=== PATIENT | female | born 2000 | race Caucasian/White ===

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

== ENCOUNTER 2023-01-20 20:56 | Emergency (ER) | payer OTHER, SELFPAY ==
[2023-01-20 20:59] VITALS: BP 117/87; PULSE 100; RESP 18; TEMP 36.6; O2SAT 98
[2023-01-20 21:29] LABS: Bilirubin Negative (Negative); Blood Moderate (Negative); Clarity Clear (Clear); Glucose Negative (Negative); Ketones Negative (Negative); Leukocyte Esterase Negative (Negative); Nitrite Negative (Negative); Specific Gravity 1.025 (1.005-1.025); Urobilinogen 0.2 mg/dL (Up to 0.2)
[2023-01-20 21:30] LABS: Bacteria Negative HPF (Negative); C & S Indicated? No; Casts Negative LPF (Negative); Crystals Negative HPF (Negative); Epithelial Cells Few HPF (Negative); Mucus Negative (Negative); Other Cells Negative (Negative); RBC 20-50 HPF (0-2); WBC 0-2 HPF (0-5)
--- NOTE | 2023-01-20 21:52 | W.ED.GENAD ---
Discharge Plan Disposition Patient Disposition: Home Discharge Details Chief Complaint: LEARNING SUPPORT TEACHER Clinical Impression: Pelvic cramping Primary Care Provider: Damon Manzanares ED Provider: Ethan Britt Home Meds and New Rx's Prescriptions: No Action Mirena 1 EACH intrauterine device 1 ea Intrauterine ONCE Qty: 1 Discharge Instructions Instructions: Pelvic Pain in Women (ED) Additional Instructions: Please follow-up tomorrow for pelvic ultrasound. Please follow-up with women's health appointment. Return to the emergency department for any worsening symptoms. Medical Decision Making 22-year-old female history of IUD presents 1 day of pelvic cramping and scant bloody discharge. Hemodynamically stable afebrile nontoxic. Nonperitoneal. Normal external genitalia, scant brown discharge near cervix on pelvic examination, IUD string visualized, swab for gonorrhea chlamydia as well as vaginal pathogen's high clinical suspicion for cramping and pain related to IUD lower suspicion for pelvic inflammatory disease, must also consider ruptured ovarian cyst versus STI versus Gardnerella versus trichomoniasis lower suspicion for candidiasis. Will set up appointment for next day pelvic ultrasound to assess location of IUD and assess for any uterine or adnexal pathology. Patient will follow-up closely with women's health. Home care instructions and return precautions given. HPI General Date/Time Provider Initiated Documentation: 01/20/23 21:12. HPI Narrative: 22-year-old female history of IUD, presents with pelvic cramping over the last 24 hours, slight bloody discharge, denies new sexual partners over the last 2 to 3 years, denies history of STI. Denies nausea vomiting fevers or chills. Has an appointment with women's health on Tuesday. Related Data Home Medications Medication Instructions Recorded Confirmed levonorgestrel 21 mcg/24 hours (8 1 ea intrauterine ONCE #1 implant 06/16/18 01/20/23 yrs) 52 mg intrauterine device (Mirena) Allergies Allergy/AdvReac Type Severity Reaction Status Date / Time banana AdvReac Contraindic Unverified 01/20/23 21:09 ated General Stated Complaint: LEARNING SUPPORT TEACHER CHIKA: 3 Review of Systems Narrative: Review of Systems Constitutional: negative Eyes: negative ENT: negative Cardiovascular: negative Respiratory: negative Gastrointestinal: negative : Pelvic cramping, vaginal discharge Musculoskeletal: negative Skin: negative Neurologic: negative Psych: negative PFSH All Active Problems (Updated 01/20/23 @ 21:57 by Ethan Britt MD) Pelvic cramping (Acute) Medical History (Updated 01/20/23 @ 21:57 by Ethan Britt MD) Achilles tendonitis Adjustment disorder of adolescence Allergic rhinitis Bunion of great toe of right foot Headache Knee joint pain Migraine Family History Mother Asthma Father Diverticulitis Hyperlipidemia Social History Smoking/Tobacco Use Status: Never Smoking risk assessment performed?: Yes Alcohol Intake: never Drug use: Never Do you feel safe at home: Yes Do you feel safe in your relationship?: Yes Exam Narrative Exam Narrative: Physical Examination General: alert, awake, cooperative, resting comfortably, no acute distress HEENT: normocephalic, atraumatic; PERRL, EOM intact, conjunctiva normal; no nasal discharge; moist mucous membranes, oral and pharyngeal mucosa normal, tolerating secretions Neck: supple, trachea midline; full ROM Chest: normal to inspection Respiratory: normal respiratory effort, speaking in full sentences, clear to auscultation, no wheezing, rales or rhonchi Cardiac: regular rate, regular rhythm, S1S2 intact, no murmurs rubs or gallops GI: abdomen soft, non-tender, non-distended; no palpable mass or hepatosplenomegaly : Normal external genitalia, scant brown discharge in vault near cervix consider old blood, no active bleeding; IUD string visualized Skin: no lesions, rashes or trauma appreciated Neuro: AAOx3, normal speech, moving all extremities Psych: Appropriate mood and affect Course Vital Signs Vital signs: Vital Signs Temperature 36.6 C 01/20/23 20:59 Pulse 100 H 01/20/23 20:59 Respiratory Rate 18 01/20/23 20:59 Blood Pressure 117/87 01/20/23 20:59 Pulse Oximetry 98 01/20/23 20:59 Temperature 36.6 C 01/20/23 20:59 Temperature Source Oral 01/20/23 20:59 Pulse 100 H 01/20/23 20:59 Respiratory Rate 18 01/20/23 20:59 Respiratory Effort Normal 01/20/23 21:05 Blood Pressure 117/87 03/16/23 20:59 Blood Pressure Position Sitting 01/20/23 20:59 Pulse Oximetry 98 01/20/23 20:59 Oxygen Delivery Method Room Air 01/20/23 20:59 Oxygen Flow Rate 0 01/20/23 20:59 Pain Level 3 01/20/23 21:07 Lab/Test Results Lab/Test Results: Laboratory Tests Range/Units 01/20/23 21:18 Urine Color (Yellow) Yellow Urine Clarity (Clear) Clear Urine pH (5-8) 7.0 Ur Specific [place] (1.005-1.025) 1.025 Urine Protein (Negative) mg/dL Negative Urine Ketones (Negative) mg/dL Negative Urine Blood (Negative) Moderate H Urine Nitrite (Negative) Negative Urine Bilirubin (Negative) Negative Urine Urobilinogen (Up to 0.2) mg/dL 0.2 Ur Leukocyte Esterase (Negative) Negative Urine RBC (0-2) HPF 20-50 H Urine WBC (0-5) HPF 0-2 Ur Epithelial Cells (Negative) HPF Few Urine Crystals (Negative) HPF Negative Urine Bacteria (Negative) HPF Negative Urine Casts (Negative) LPF Negative Urine Mucus (Negative) Negative Urine Other (Negative) Negative Ur Culture Indicated? No Urine Glucose (Negative) mg/dL Negative POC- Test(urine) Negative
--- NOTE | 2023-01-20 22:05 | NUR.NOTE ---
Pelvic Ultrasound req faxed to DI for 01/21/23, pelvic instruction sheet given to patient.Nursing Note:
[2023-01-20 22:06] VITALS: PULSE 98; RESP 18; O2SAT 97
[2023-01-22 14:06] LABS: Chlamydia Result Negative (Negative); GC Result Negative (Negative)
== END 2023-01-20 22:08 | disposition home or self-care (01) ==
PROVIDERS: Emergency Provider Emergency Medicine; PCP Physician Assistant
DX: N89.8 Other specified noninflammatory disorders of vagina (principal); N94.89 Other specified conditions associated with female genital organs and menstrual cycle
CPT/HCPCS: 81025; 87491; 87591; 99282; 99284; 81003; 81015; 87480; 87510; 87660; 99283

== ENCOUNTER 2023-01-24 15:38 | Outpatient (REF) | payer OTHER, SELFPAY ==
--- NOTE | 2023-01-24 14:00 | PAPFT_PTH ---
PATIENT: Selam Mcpherson LOC: N U#:[id number] AGE/SX: 22/F ROOM: RE01/24/[address]: Mariah Porter NP : 2000 BED: DIS: 01/24/2023 SPEC #: [id number] RECD: 01/24/23 17:25 STATUS: GT REQ #: [id number] CHRISTAL: 01/24/23 14:[address]: Mariah Porter NP DEPT: [facility] Cytology RECD BY: Zehra Schwarz ENTERED: 01/24/23 17:25 SP TYPE: PAPFT OTHR DR: Damon Manzanares Tissues: 1 - CX/ENDOCX FOR PAP SMEARS Procedures: PAP THIN PREP/[facility] Screening Comments: [id number]
== END 2023-01-24 15:39 | disposition home or self-care (01) ==
LOC: LBN 15:38
PROVIDERS: PCP Physician Assistant; Visit Provider Nurse Practitioner Women's Health
DX: Z12.4 Encounter for screening for malignant neoplasm of cervix (principal)
CPT/HCPCS: 88142

== ENCOUNTER 2023-06-22 08:15 | Outpatient (REF) | payer OTHER, MEDICAID, SELFPAY ==
[2023-06-24 12:15] LABS: Campylobacter PCR Negative (Negative); Salmonella PCR Negative (Negative); Shiga Toxin PCR Negative (Negative); Shigella/Enteroinvasive Ecoli Negative (Negative)
== END 2023-06-22 08:16 | disposition home or self-care (01) ==
LOC: NCHCN 08:15
PROVIDERS: PCP Physician Assistant; Visit Provider Physician Assistant
DX: R10.30 Lower abdominal pain, unspecified (principal); R19.7 Diarrhea, unspecified; K59.00 Constipation, unspecified
CPT/HCPCS: 87329; 87505; 83630; 87177

== ENCOUNTER 2023-08-19 13:30 | Outpatient (REF) | payer MEDICAID, SELFPAY ==
[2023-08-19 19:09] LABS: TSH (W/Ref FT4) 1.43 uIU/mL (0.36-3.74)
== END 2023-08-19 13:31 | disposition home or self-care (01) ==
LOC: NCHCN 13:30
PROVIDERS: PCP Internal Medicine; Visit Provider Physician Assistant
DX: Z83.49 Family history of other endocrine, nutritional and metabolic diseases (principal)
CPT/HCPCS: 84443

== ENCOUNTER 2023-09-19 15:36 | Outpatient (REF) | payer MEDICAID, SELFPAY | END 2023-09-19 15:37 | disposition home or self-care (01) | LOC: NCHCN 15:36 | PROVIDERS: PCP Internal Medicine; Visit Provider Nurse Practitioner Family | DX: J02.9 Acute pharyngitis, unspecified (principal) | CPT/HCPCS: 87070 ==

== ENCOUNTER → 2023-11-10 01:49 | Outpatient (CLI) | payer OTHER, SELFPAY ==
--- NOTE | 2023-11-10 13:27 | DI.RAD_ITS ---
Exam(s) XR FOOT RT COMPLETE EXAM: XR FOOT RT COMPLETE CLINICAL HISTORY: Right foot pain,m79.671. TECHNIQUE: 2D digital imaging was performed of the right foot. Three images were obtained. AP, obl ique and lateral views were obtained. COMPARISON: No exams were available for comparison FINDINGS: BONES: No acute fracture is present. No bony destructive lesion is seen. There is a hallux valgus def ormity. JOINTS: No dislocation present. The joint spaces are well maintained. SOFT TISSUE: Normal. IMPRESSION: Hallux valgus deformity. DATA REPOSITORY: RADIATION DOSE DELIVERED:
--- NOTE | 2023-11-10 13:27 | DI.RAD_ITS ---
Exam(s) XR FOOT LT COMPLETE EXAM: XR FOOT LT COMPLETE CLINICAL HISTORY: Left foot pain,M79.672. TECHNIQUE: 2D digital imaging was performed of the left foot. Three images were obtained. AP, obli que and lateral views were obtained. COMPARISON: No exams were available for comparison FINDINGS: BONES: No acute fracture is present. No bony destructive lesion is seen. There is a mild hallux valgu s deformity. JOINTS: No dislocation present. The joint spaces are well maintained. SOFT TISSUE: Normal. IMPRESSION: No acute abnormality. Please see the above discussion for complete details. DATA REPOSITORY: RADIATION DOSE DELIVERED:
== END ==
PROVIDERS: PCP Internal Medicine; Visit Provider Podiatrist
DX: M79.671 Pain in right foot (principal); M79.672 Pain in left foot; M20.11 Hallux valgus (acquired), right foot
CPT/HCPCS: 73630

== ENCOUNTER 2024-07-26 21:06 | Outpatient (REF) | payer OTHER, SELFPAY ==
--- OUTSIDE RECORDS SUMMARY | 2024-07-26 21:15 | XMS_ITS | Referral Summary ---
Author Organization [facility] Address [address] [place] [address] Care Team Providers Care Burlap Roll Coverer Name Role Phone Mynor Balderas MD Primary Care Provider [phone] Allergies No known active allergies Medications No known medications Social History Tobacco Use Types Packs/Day Years Used Date Smoking Tobacco: Never Interpersonal Safety Answer Date Record ed Physically Hurt Never 06/09/2020 Verbally Threaten Not on file 06/09/2020 Sex and Gender Information Value Date Recorded Sex Assigned at Not on file Gender Identity Not on file Sexual Orientation Not on file Last Filed Vital Signs Vital Sign Reading Time Taken Comments Blood Pressure 115/62 03/14/2016 0748 EDT Pulse 74 03/14/2016 0748 EDT Temperature 36.5 ??C (97.7 ??F) 03/14/2016 0748 EDT Respiratory Rate 14 03/14/2016 0748 EDT Oxygen Saturation 100% 03/14/2016 0748 EDT Inhaled Oxygen Concentration - - Weight 61.2 kg (135 lb) 03/14/2016 0748 EDT Height - - Body Mass Index - - Plan of Treatment Not on file Care Teams Burlap Roll Coverer Relationship Specialty Start Date End Date Mynor Balderas MD [address] [place] [address] PCP - General 03/14/16
--- OUTSIDE RECORDS SUMMARY | 2024-07-26 21:15 | XMS_ITS | Encounter Summary ---
Author Organization [facility] Address [address] [place] [address] Care Team Providers Care Patient Services Technician Name Role Phone Mynor Balderas MD Primary Care Provider [phone] Reason for Visit * Reason Comments Foot Pain right foot pain afte r swimming, I jammed my foot into the bottom of the pool, occurred last night, has used ice/Ibuprofen, unable to bear wt Encounter Details Date Type Department Care Team (Late st Contact Info) Description 03/14/2016 7:42 EDT - 03/14/2016 9:13 EDT Emergency [facility] Emergency Department - [address] [address] Walter Watkins MD Emergency, MD Jena Discharge Disposition: Home or Self Care Social History Tobacco Use Types Packs/Day Years Used Date Smoking Tobacco: Never Sex and Gender Information Value Date Recorded Sex Assigned at Not on file Gender Identity Not on file Sexual Orientation Not on file documented as of this encounter Last Filed Vital Signs Vital Sign Reading Time Taken Comments Blood Pressure 115/62 03/14/2016 0748 EDT Pulse 74 03/14/2016 0748 EDT Temperature 36.5 ??C (97.7 ??F) 03/14/2016 0748 EDT Respiratory Rate 14 03/14/2016 0748 EDT Oxygen Saturation 100% 03/14/2016 0748 EDT Inhaled Oxygen Concentration - - Weight 61.2 kg (135 lb) 03/14/2016 0748 EDT Height - - Body Mass Index - - documented in this encounter Discharge Instructions * Discharge Instructions* Walter Watkins MD - 03/14/2016 8:47 EDT You have a fracture of the base of the 5th metatarsal You should use the boot for walking until cleared to walk without it by the orthopedist Call for orthopedic appointment in your home area tomorrow, to be seen in 7-10 days See any doctor if worsening or concerning symptoms Use tylenol or advil if needed for pain May use ice today off and on No sports until cleared by orthopedist documented in this encounter Discharge Disposition Disposition Code Departure Means Destination Comment s Home or Self Care Walk-out Home dad with pt to transport pt home and assist after discharge as needed. documented in this encounter ED Notes * Milady Melendez RN - 03/14/2016 0910 EDT Work up complete. Provider in to reassess pt and speak to pt and her dad regarding findings and plan of care. Pt for walking boot and crutches-provided with instructions given; then okay for discharge. Instructions prepared by provider reviewed with pt who verbalizes and demonstrates clear understanding of all discharge instructions. Demonstrates safe and proper application and use of walking boot.Demonstrates safe and proper crutch ambulation. * Walter Watkins MD - 03/14/2016 0802 EDT DOS: 03/14/2016 Chief Complaint Patient presents with ??? Foot Pain right foot pain after swimming, I jammed my foot into the bottom of the pool, occurred last night, has used ice/Ibuprofen, unable to bear wt HPI HPI Comments: I, Annel Kong, am scribing for Walter Watkins MD while he is personally performing the service. Annel Kong 03/14/2016 8:06 Selma Mcpherson is a 16 y.o. female with a no significant past medical history who presents to the ED with right foot pain localized in the lateral aspect of her foot. The patient notes that while jumping into a pool last night, she slammed and twisted her right foot at the bottom of the pool. She notes that after injuring her foot, she immediately got out of the pool and limped back to her hotelroom. The patient notes that she took ibuprofen and iced her foot last night to relieve the pain. The patient denies any pain in her knee, toes, ankle, or leg. The history is provided by the patient and the father. Review of Systems Review of Systems Musculoskeletal: Negative for myalgias and arthralgias. Foot pain as a result of injury to the right foot All other systems reviewed and are negative. The patient's past medical, family and social history was reviewed and updated as needed. No Known Allergies Vital Signs Temp: 36.5 ??C (97.7 ??F) Temp src: Temporal Pulse: 74 Resp: 14 SpO2: 100 % BP: 115/62 mmHg O2 Device: None (Room air) Physical Exam Constitutional: She is oriented to person, place, and time. She appears well- developed and well-nourished. No distress. HENT: Head: Normocephalic and atraumatic. Neck: Normal range of motion. Neck supple. Cardiovascular: Intact distal pulses. Pulses: Dorsalis pedis pulses are 2+ on the right side. Normal dorsalis pedal pulse in the right foot. Pulmonary/Chest: Effort normal. No respiratory distress. Musculoskeletal: She exhibits edema (localized swelling over the area) and tenderness (Tenderness over the top part of the foot.). Hyper-extension injury localized in the lateral aspect of the right foot. Tenderness to the top part of her foot - most tenderness over the base of the 5th metatarsal. Some localized swelling and bruising to the area. Rest of the foot, ankle and leg non tender Neurological: She is alert and oriented to person, place, and time. She has normal strength. No sensory deficit. Skin: Skin is warm and dry. She is not diaphoretic. Psychiatric: She has a normal mood and affect. Her behavior is normal. Nursing note and vitals reviewed. RESULTS ED Lab Results Labs Reviewed - No data to display Procedures ED COURSE A medical screening exam was performed. Patient had a right foot X-ray, reviewed and interpreted by me, showing a non- displaced fracture atthe base of the fifth metatarsal. Advised the patient and her father of the fracture and the need for orthopedic follow-up in their area in 7-10 days. Will give 3-D boot to use. Will also give crutches today if needed. The patient was discharged to home. Prior to discharge usual and customary precautions were reviewed with the patient and/or family including follow-up instructions and reasons to return to the Emergency Department if condition worsens, does not improve as expected, or other new concerns arise. ASSESSMENT AND PLAN Final diagnoses: None DISPOSITION: Discharged The patient's pain was managed to an adequate level weighing risk vs. benefit of further medications. Upon departure from the Emergency Department, the patient's pain was 5 on a zero to ten scale. Condition at departure from the Emergency Department: Good PCP: Mynor AYALA Number of Diagnoses or Management Options Diagnosis management comments: 3 This documentation is recorded by Annel Kong acting as Scribe under the direction and presence of Walter Watkins MD. Walter Watkins MD: I personally performed the services recorded by the scribe in my presence. I confirm the scribe's documentation has been reviewed by me to accurately and completely record my work, treatment, procedures, and medical decision making. 03/14/2016 9:10 No flowsheet data found. documented in this encounter Plan of Treatment Not on file documented as of this encounter Procedures Procedure Name Priority Date/Time Associated Diagnosis Comments FOOT 3 OR MORE VIEWS STAT 03/14/2016 8:37 EDT documented in this encounter Results * FOOT 3 OR MORE VIEWS (03/14/2016 8:37 EDT) Anatomical Region Laterality Modality Other 03/14/2016 8:37 EDT 03/14/2016 9:40 EDT Narrative 03/14/2016 9:40 EDT FOOT 3 OR MORE VIEWS ??03/14/2016 8:37 AM SIGNS AND SYMPTOMS/COMMENTS: BONE PAIN, FOOT, injury lateral right foot yesterday COMPARISON: None. FINDINGS: AP, oblique, and lateral nonweightbearing views of the right foot show a nondisplaced fracture involving the base of the 5th metatarsal. No additional fractures are seen elsewhere. The remaining of the visualized bones, joint spaces, and soft tissues are grossly unremarkable. 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 Dr. French discussed findings with Dr. Watkins from the ED at the time of dictation. Procedure Note Aime French MD - 03/14/2016 FOOT 3 OR MORE VIEWS 03/14/2016 8:37 AM SIGNS AND SYMPTOMS/COMMENTS: BONE PAIN, FOOT, injury lateral right foot yesterday COMPARISON: None. FINDINGS: AP, oblique, and lateral nonweightbearing views of the right foot show a nondisplaced fracture involving the base of the 5th metatarsal. No additional fractures are seen elsewhere. The remaining of the visualized bones, joint spaces, and soft tissues are grossly unremarkable. 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 Dr. French discussed findings with Dr. Watkins from the ED at the time of dictation. Walter Watkins MD IMG DIAGNOSTIC IMAG ING ORDERABLES documented in this encounter Visit Diagnoses Not on filedocumented in this encounter Orders Equipment Count Last Ordered Date First Orde red Date CRUTCHES (E0114) 1 03/16/2016 documented in this encounter Care Teams Patient Services Technician Relationship Specialty Start Date End Date Mynor Balderas MD [address] [place] [address] PCP - General 03/14/16 documented as of this encounter
--- OUTSIDE RECORDS SUMMARY | 2024-07-26 21:15 | XMS_ITS | Clinical Summary ---
Author Organization [facility] Address [address] [place] [address] Care Team Providers Care Auto Service Instructor Name Role Phone Mynor Balderas MD Primary Care Provider [phone] Allergies No known active allergies Medications No known medications Social History Tobacco Use Types Packs/Day Years Used Date Smoking Tobacco: Never Interpersonal Safety Answer Date Record ed Physically Hurt Never 06/09/2020 Verbally Threaten Not on file 06/09/2020 Sex and Gender Information Value Date Recorded Sex Assigned at Not on file Gender Identity Not on file Sexual Orientation Not on file Obstetrics History Last Filed Vital Signs Vital Sign Reading [...] Mass Index - - Plan of Treatment Health Maintenance Due Date Last Done Comments Hepatitis C Screen 2002 Hepatitis B Vaccine (1 of 3 - 19+ 3-dose series) 01/24 COVID-19 Vaccine (2022- season) 2023 Care Teams Auto Service Instructor Relationship Specialty Start Date End Date Mynor Balderas MD [address] [place] [address] PCP - General 03/14/16
--- OUTSIDE RECORDS SUMMARY | 2024-07-26 21:15 | XMS_ITS | Encounter Summary ---
Author Organization [facility] Address [address] [place] [address] Care Team Providers Care Survey Research Center Director Name Role Phone Mynor Balderas MD Primary Care Provider [phone] Encounter Details Date Type Department Care Team (Late st Contact Info) Description 06/23/2023 Lab Requisition [facility] Pathology & Laboratory Medicine - [address] [address] Outr Resulting Lab, Provider Social History Tobacco Use Types Packs/Day Years Used Date Smoking Tobacco: Never Interpersonal Safety Answer Date Record ed Physically Hurt Never 06/09/2020 Verbally Threaten Not on file 06/09/2020 Sex and Gender Information Value Date Recorded Sex Assigned at Not on file Gender Identity Not on file Sexual Orientation Not on file documented as of this encounter Plan of Treatment Not on file documented as of this encounter Procedures Procedure Name Priority Date/Time Associated Diagnosis Comments FECAL BACTERIAL PATHOGENS BY PCR Routine 06/22/2023 8:00 EDT GIARDIA AND CRYPTOSPORIDIUM ANTIGENS Routine 06/22/2023 8:00 EDT OVA/PARASITE EXAM Routine 06/22/2023 8:0 0 EDT documented in this encounter Results * GIARDIA AND CRYPTOSPORIDIUM ANTIGENS (06/22/2023 8:00 EDT) Giardia and Cryptosporidium Cryptosporidium Antigen Neg and Giardia Antigen Neg Cryptosporidium Antigen Neg and Giardia Antigen Neg 08/18/202 3 11:08 EDT [facility] Feces SPECIMEN FROM RECTUM / Unknown 06/22/2023 8:00 EDT 06/23/2023 17:59 EDT Provider Outr Resulting Lab MICROBIOLOGY - GENERAL ORDERABLES [facility] [address] [place] [address] * FECAL BACTERIAL PATHOGENS BY PCR (06/22/2023 8:00 EDT) Salmonella PCR Negative Negative 06/24/2023 12:10 EDT [facility] Shigella/Enteroin vasive E. coli Negative Negative 06/24/2023 12:10 EDT [facility] HN LAB CAMPYLOBACTER PCR Negative Negative 06/24/2023 12:10 EDT [facility] Shiga Toxin PCR Negative Negative 12:10 EDT [facility] Feces SPECIMEN FROM RECTUM / Unknown 06/22/2023 8:00 EDT 06/23/2023 17:59 EDT Provider Outr Resulting Lab MICROBIOLOGY - GENERAL ORDERABLES Performing Organization Address [facility] Co de Phone Number [facility] [address] [place] [address] * OVA/PARASITE EXAM (06/22/2023 8:00 EDT) Parasite No ova and parasites seen. 06/24/2023 11:39 EDT [facility] Feces SPECIMEN FROM RECTUM / Unknown 06/22/2023 8:00 EDT 06/23/2023 17:59 EDT Narrative [facility] - 06/24/2023 11:39 EDT (If Cryptosporidium, Cyclospora, or Microsporidium are suspected, specific tests must be requested.) Single negative specimen does not rule out the possibility of a parasitic infection. Provider Outr Resulting Lab MICROBIOLOGY - GENERAL ORDERABLES Performing Organization Address City/[facility]/ZIP Co de Phone Number [facility] [address] [place] [address] documented in this encounter Visit Diagnoses Not on filedocumented in this encounter Care Teams Survey Research Center Director Relationship Specialty Start Date End Date Mynor Balderas MD [address] [place] [address] PCP - General 03/14/16 documented as of this encounter
--- OUTSIDE RECORDS SUMMARY | 2024-07-26 21:15 | XMS_ITS | Encounter Summary ---
Author Organization [facility] Address [address] [place] [address] Care Team Providers Care Cnc Supervisor Name Role Phone Mynor Balderas MD Primary Care Provider [phone] Encounter Details Date Type Department Care Team (Late st Contact Info) Description 01/26/2023 Lab Requisition [facility] Pathology & Laboratory Medicine - [address] [address] Mariah Porter, JIGGER ARTISAN [address] [place] [id number] Encounter for other general examination Social History Tobacco Use Types Packs/Day Years [...] Procedure Name Priority Date/Time Associated Diagnosis Comments PAP TEST Today 2023 14:00 EDT Encounter for other general examination documented in this encounter Results * PAP TEST (2023 14:00 EDT) Specimens A. Cervix and/or Endocervix , ThinPrep Imaging System with Manual Evaluation 02/03/2023 8:39 EDT [facility] Specimen Adequacy Satisfactory for Evaluation - transformation zone component present 02/03/2023 8:39 EDT [facility] General Categorization Negative for intraepithelial lesion or malignancy 02/03/2023 8:39 EDT [facility] Attestation . 02/03/2023 8:39 EDT [facility] at 0839 Clinical History See below 02/04/20 8:39 EDT [facility] Performing Lab [facility] 02/03/2023 8:39 EDT [facility] Scanned Images 02/03/2023 8:39 EDT [facility] Papanicolaou smear specimen (specimen) CERVIX UTERI STRUCTURE / Unknown 2023 14:00 EDT 01/26/2023 8:49 EDT Mariah A German JIGGER ARTISAN PATHOLOGY ORDERAB LES [facility] [address] [place] [address] documented in this encounter Visit Diagnoses Diagnosis Encounter for other general examination documented in this encounter Care Teams Cnc Supervisor Relationship Specialty Start Date End Date Mynor Balderas MD [address] [place] [address] PCP - General 03/14/16 documented as of this encounter
--- OUTSIDE RECORDS SUMMARY | 2024-07-26 21:15 | XMS_ITS | Encounter Summary ---
Author Organization [facility] Address [address] [place] [address] Care Team Providers Care Trestleman Name Role Phone Mynor Balderas MD Primary Care Provider [phone] Encounter Details Date Type Department Care Team (Late st Contact Info) Description 01/21/2023 Lab Requisition [facility] Pathology & Laboratory Medicine - [address] [address] Outr Resulting Lab, Provider Social History Tobacco [...] Procedure Name Priority Date/Time Associated Diagnosis Comments CHLAMYDIA/N. GONORRHOEAE AMPLIFIED NUCLEIC ACID Routine 01/20/2023 22:01 EDT documented in this encounter Results * CHLAMYDIA/N. GONORRHOEAE AMPLIFIED RNA (01/20/2023 22:01 EDT) Neisseria gonorrhoeae Result Negative Negative 01/22/2023 14:01 EDT [facility] Chlamydia trachomatis Result Negative Negative 01/22/2023 14:01 EDT [facility] Swab ENTIRE VAGINA / Unknown 01/20/2023 22:01 EDT 01/21/2023 22:11 EDT Provider Outr Resulting Lab MICROBIOLOGY - GENERAL ORDERABLES [facility] [address] [place] [address] documented in this encounter Visit Diagnoses Not on filedocumented in this encounter Care Teams Trestleman Relationship Specialty Start Date End Date Mynor Balderas MD [address] [place] [address] PCP - General 03/14/16 documented as of this encounter
[2024-07-26 22:42] LABS: FREE T4 0.95 ng/dL (0.76-1.46); TSH 0.87 uIU/Ml (0.36-3.74)
[2024-07-27 18:18] LABS: Thyroperoxidase Antibody <28 U/mL (<=60)
[2024-07-28 08:57] LABS: HIV-1/2 Ag & Ab Screen Negative (Negative)
[2024-07-30 10:17] LABS: Hepatitis C Ab w Rflx HCV PCR Negative (Negative)
== END 2024-07-26 21:07 | disposition home or self-care (01) ==
LOC: NCHCN 21:06
PROVIDERS: PCP Internal Medicine; Visit Provider Internal Medicine
DX: R53.83 Other fatigue (principal); Z00.00 Encounter for general adult medical examination without abnormal findings
CPT/HCPCS: 86803; 87389; 84439; 84443; 86376

== ENCOUNTER 2025-02-27 12:55 | Outpatient (CLI) | payer OTHER, SELFPAY ==
[2025-03-01 09:26] LABS: HIV-1/2 Ag & Ab Screen Negative (Negative)
[2025-03-01 10:58] LABS: Syphilis Serology (RPR) Negative (Negative)
[2025-03-01 13:08] LABS: Hepatitis A Antibody IgM Negative (Negative); Hepatitis B Core Antibody Positive (Negative); Hepatitis B surface Ag Negative (Negative); Hepatitis C Ab w Rflx HCV PCR Negative (Negative)
[2025-03-05 19:23] LABS: HBc IgM Ab, S Negative (Negative)
== END 2025-02-27 12:56 | disposition home or self-care (01) ==
LOC: LBO 02-28 12:56
PROVIDERS: PCP Internal Medicine; Visit Provider Obstetrics & Gynecology
DX: Z11.3 Encounter for screening for infections with a predominantly sexual mode of transmission (principal)
CPT/HCPCS: 36415; 86704; 86709; 86803; 87340; 87389; 86592; 86705

== ENCOUNTER 2025-02-27 16:20 | Outpatient (REF) | payer OTHER, SELFPAY ==
[2025-03-01 11:41] LABS: Chlamydia Result Negative (Negative); GC Result Negative (Negative)
== END 2025-02-27 16:21 | disposition home or self-care (01) ==
LOC: LBN 16:20
PROVIDERS: PCP Internal Medicine; Visit Provider Obstetrics & Gynecology
DX: Z11.3 Encounter for screening for infections with a predominantly sexual mode of transmission (principal)
CPT/HCPCS: 87491; 87591; 87480; 87510; 87660

== ENCOUNTER 2025-03-06 14:10 | Outpatient (CLI) | payer OTHER, SELFPAY ==
[2025-03-06 14:43] LABS: Abs Immature Grans 0.01 10^3/uL (0.0-0.06); Absolute Basophil Count 0.04 10^3/uL (0.0-0.2); Absolute Eosinophil Count 0.19 10^3/uL (0.0-0.7); Absolute Lymphocyte Count 2.03 10^3/uL (1.2-3.4); Absolute Monocyte Count 0.54 10^3/uL (0.1-0.8); Absolute Neutrophil Count 3.52 10^3/uL (1.2-6.7); Basophils % 0.6 %; HCT 43.1 % (36.0-46.0); HGB 14.4 g/dL (11.2-15.7); Immature Grans % 0.2 %; Lymphocytes % 32.1 %; MCH 29.2 pg (27.0-33.0); MCHC 33.4 % (32.0-36.0); MCV 87 fL (80-95); Monocytes % 8.5 %; Neutrophils % 55.6 %; Platelet Count 292 10^3/uL (130-400); RBC 4.93 10^6/uL (3.93-5.22); RDW 11.7 % (11.7-14.6); RDW-SD 37.7 fL; WBC 6.33 10^3/uL (4.4-10.8)
[2025-03-06 14:59] LABS: INR 1.1 (0.9-1.1); PTT Activated 30.1 sec (20.6-30.2); Prothrombin Time 11.1 sec (9.1-11.1)
[2025-03-06 17:18] LABS: ALT 25 U/L (14-59); AST 18 U/L (15-37); Albumin 4.2 g/dL (3.4-5.0); Alkaline Phosphatase 83 U/L (46-116); Anion Gap 7.8 mmol/L (3-11); BUN 12 mg/dL (7-18); Bilirubin, Total 0.7 mg/dL (0.2-1.0); CO2 28.2 mmol/L (21.0-32.0); CREATININE 0.8 mg/dL (0.55-1.02); Calcium 9.1 mg/dL (8.5-10.1); Chloride 104 mmol/L (98-107); Estimated GFR 106.11 (mL/min/1.73m2); Glucose 87 mg/dL (74-106); Sodium 140 mmol/L (136-145); Total Protein 7.8 g/dL (6.4-8.2)
== END 2025-03-06 14:11 | disposition home or self-care (01) ==
LOC: LBO 14:10
PROVIDERS: PCP Internal Medicine; Visit Provider Obstetrics & Gynecology
DX: R76.8 Other specified abnormal immunological findings in serum (principal)
CPT/HCPCS: 36415; 80053; 85025; 85610; 85730

== ENCOUNTER 2025-03-20 03:21 | Outpatient (CLI) | payer OTHER, SELFPAY ==
[2025-03-21 08:54] LABS: HBs Antibody, Quant 842.5 mIU/mL (See Note); Hepatitis B Surface Ab Positive (See Note)
[2025-03-21 12:06] LABS: Hepatitis A Antibody IgM Negative (Negative); Hepatitis B Core Antibody Positive (Negative); Hepatitis B surface Ag Negative (Negative); Hepatitis C Ab w Rflx HCV PCR Negative (Negative)
[2025-03-22 12:13] LABS: HBe Antibody Negative (Negative)
[2025-03-23 10:32] LABS: HBc IgM Ab, S Negative (Negative)
== END 2025-03-20 03:22 | disposition home or self-care (01) ==
LOC: LBO 03:21
PROVIDERS: PCP Internal Medicine; Visit Provider Obstetrics & Gynecology
DX: R76.8 Other specified abnormal immunological findings in serum (principal)
CPT/HCPCS: 36415; 86704; 86706; 86709; 86803; 87340; 86705; 86707

== ENCOUNTER 2025-09-05 16:51 | Outpatient (REF) | payer OTHER, SELFPAY ==
[2025-09-05 19:48] LABS: HCT 40.2 % (36.0-46.0); HGB 13.7 g/dL (11.2-15.7); MCH 29.3 pg (27.0-33.0); MCHC 34.1 % (32.0-36.0); MCV 86 fL (80-95); MPV 9.6 fL (8.0-11.0); Platelet Count 282 10^3/uL (130-400); RBC 4.68 10^6/uL (3.93-5.22); RDW 11.8 % (11.7-14.6); RDW-SD 36.7 fL; WBC 6.09 10^3/uL (4.4-10.8)
[2025-09-05 20:11] LABS: TSH (W/Ref FT4) 0.71 uIU/mL (0.36-3.74)
[2025-09-09 08:06] LABS: Transferrin 188 mg/dL (201-352)
== END 2025-09-05 16:52 | disposition home or self-care (01) ==
LOC: NCHCN 16:51
PROVIDERS: PCP Internal Medicine; Visit Provider Nurse Practitioner Family
DX: R68.89 Other general symptoms and signs (principal); Z83.49 Family history of other endocrine, nutritional and metabolic diseases
CPT/HCPCS: 85027; 84443; 84466